=== PATIENT | male | born 1955 | race Caucasian/White ===

== ENCOUNTER 2020-10-26 16:38 | Inpatient (IN) | payer MEDICARE ==
[~2020-10-26] VITALS: Ht 182.9 cm; Wt 97.3 kg
[2020-10-26] MEDS ORDERED: CYCL10 PO (17:09)
[2020-10-26] MEDS ORDERED: ASPI81CH PO (17:09)
[2020-10-26] MEDS ORDERED: FURO40 PO (17:09)
[2020-10-26] MEDS ORDERED: METF500C PO (17:10)
[2020-10-26] MEDS ORDERED: HUMULIN 70100 UNIT/4 (17:10)
[2020-10-26] MEDS ORDERED: LOSA50 PO (17:10)
[2020-10-26] MEDS ORDERED: OMEP20ER PO (17:12)
[2020-10-26] MEDS ORDERED: ZOLP5 PO (17:12)
[2020-10-26] MEDS ORDERED: METO25ER PO (17:12)
[2020-10-26] MEDS ORDERED: TIZA4 PO (17:12)
[2020-10-26 17:50] LABS: BASOPHILS ABSOLUTE AUTO 0.06 K/mm3 (0.00-0.23); BASOPHILS PERCENT AUTO 1 % (0-2); EOSINOPHILS ABSOLUTE AUTO 0.41 K/mm3 (0.00-0.68); EOSINOPHILS PERCENT AUTO 6 % (0-6); Hematocrit 41.1 % (37.0-53.0); Hemoglobin 14.5 g/dL (13.5-17.5); IMMATURE GRAN ABSOLUTE AUTO 0.03 K/mm3 (0.00-0.10); IMMATURE GRAN PERCENT AUTO 0 % (0-1); LYMPHOCYTES ABSOLUTE AUTO 1.55 K/mm3 (0.84-5.20); LYMPHOCYTES PERCENT AUTO 21 % (21-46); MONOCYTES ABSOLUTE AUTO 0.69 K/mm3 (0.16-1.47); MONOCYTES PERCENT AUTO 9 % (4-13); Mean Corpuscular HGB 31.7 pg (26.0-34.0); Mean Corpuscular HGB Conc 35.3 g/dL (31.5-36.5); Mean Corpuscular Volume 90 fL (80-100); Mean Platelet Volume 10.1 fL (9.1-12.4); NEUTROPHILS ABSOLUTE AUTO 4.64 K/mm3 (1.96-9.15); NEUTROPHILS PERCENT AUTO 63 % (41-73); Platelet Count 226 K/mm3 (150-400); RDW Coefficient Variation 14.2 % (11.7-14.2); RDW Standard Deviation 46.6 fL (35.1-46.3); Red Blood Cell Count 4.58 M/mm3 (4.30-5.90); White Blood Cell Count 7.38 K/mm3 (4.00-11.30)
[2020-10-26 18:05] LABS: International Normalized Ratio 1.03; Prothrombin Time Results 11.1 Sec (9.7-11.5)
[2020-10-26 18:17] LABS: Alanine Aminotransfer (ALT/SGP 37 U/L (12-78); Albumin, Blood 3.3 g/dL (3.4-5.0); Albumin/Globulin Ratio 0.8 (0.8-1.8); Alk Phos 99 U/L (50-136); Anion Gap 6 mmol/L (6-16); Aspartate Aminotrans (AST/SGOT 64 U/L (12-37); Bilirubin, Total 1.1 mg/dL (0.1-1.0); Blood Urea Nitrogen 17 mg/dL (8-24); Bun/Creatinine Ratio 21.5 (12.0-20.0); CO2, Blood 26 mmol/L (21-32); Calcium, Blood 8.7 mg/dL (8.5-10.1); Chloride, Blood 109 mmol/L (98-108); Creatinine, Blood 0.79 mg/dL (0.60-1.20); Glomerular Filtration Rate >60 (60-); Glucose, Blood 141 mg/dL (70-99); Potassium, Blood 3.8 mmol/L (3.5-5.5); Sodium, Blood 141 mmol/L (136-145); Total Protein, Blood 7.3 g/dL (6.4-8.2)
[2020-10-26 18:57] LABS: Creatine Kinase MB 22.1 ng/mL (0.0-3.6); Creatine Kinase MB Index 4.9 (0.0-4.0); Magnesium, Blood 1.9 mg/dL (1.6-2.4)
--- NOTE | 2020-10-26 19:24 | NUR ---
PT ADMIT TO PCU AT 1822. ABLE TO TRANSFER FROM BED TO [facility], STEADY ON FEET. DENIES CHEST PAIN AT THIS TIME. TELE SHOWING SINUS WITH HR 80-90'S. VITAL SIGNS SHOWING ELEVATED BP, MEDICATED PER EMAR. ON ROOM AIR SATING ABOVE 94%. DENIES SOB. BILATERAL LOWER EXTREMITY EDEMA. RIGHT BIG TOE SCAB. BOWEL TONES PRESENT AND PERIPHERAL PULSES STRONG. LUNGS SOUNDING CLEAR AND DIM AT BASES. TROPONIN ELEVATED. DR. DIAS CONSULTED. PT OKAY TO EAT PER DR. DIAS. PT ORIENTED TO ROOM AND UNIT. CALL LIGHT IN REACH. BED IN LOW LOCKED POSITION. REPORTED OFF TO ONCOMING RN.
[2020-10-27 06:07] LABS: BASOPHILS ABSOLUTE AUTO 0.07 K/mm3 (0.00-0.23); BASOPHILS PERCENT AUTO 1 % (0-2); EOSINOPHILS ABSOLUTE AUTO 0.49 K/mm3 (0.00-0.68); EOSINOPHILS PERCENT AUTO 5 % (0-6); Hematocrit 41.8 % (37.0-53.0); Hemoglobin 14.9 g/dL (13.5-17.5); IMMATURE GRAN ABSOLUTE AUTO 0.04 K/mm3 (0.00-0.10); IMMATURE GRAN PERCENT AUTO 0 % (0-1); LYMPHOCYTES ABSOLUTE AUTO 1.83 K/mm3 (0.84-5.20); LYMPHOCYTES PERCENT AUTO 20 % (21-46); MONOCYTES ABSOLUTE AUTO 0.85 K/mm3 (0.16-1.47); MONOCYTES PERCENT AUTO 9 % (4-13); Mean Corpuscular HGB 31.8 pg (26.0-34.0); Mean Corpuscular HGB Conc 35.6 g/dL (31.5-36.5); Mean Corpuscular Volume 89 fL (80-100); Mean Platelet Volume 10.3 fL (9.1-12.4); NEUTROPHILS ABSOLUTE AUTO 5.91 K/mm3 (1.96-9.15); NEUTROPHILS PERCENT AUTO 64 % (41-73); Platelet Count 239 K/mm3 (150-400); RDW Coefficient Variation 14.1 % (11.7-14.2); RDW Standard Deviation 45.4 fL (35.1-46.3); Red Blood Cell Count 4.69 M/mm3 (4.30-5.90); White Blood Cell Count 9.19 K/mm3 (4.00-11.30)
--- NOTE | 2020-10-27 06:28 | NUR ---
SHIFT SUMMARY PT A&O X4. VSS. PT DENIES CP THIS SHIFT BUT DOES REPORT "UPPER BACK ACHE IN BETWEEN MY SHOULDER BLADES." PT MONITOR SHOWS SR, HR 70's. SPO2 > 92% ON RA. CIWA 4 OR LESS THIS SHIFT. NO EVENTS OVER NIGHT. HEPARIN GTT INFUSING PER ORDERS.
[2020-10-27 06:30] LABS: Alanine Aminotransfer (ALT/SGP 35 U/L (12-78); Albumin, Blood 3.2 g/dL (3.4-5.0); Albumin/Globulin Ratio 0.8 (0.8-1.8); Alk Phos 105 U/L (50-136); Anion Gap 7 mmol/L (6-16); Aspartate Aminotrans (AST/SGOT 57 U/L (12-37); Bilirubin, Total 1.4 mg/dL (0.1-1.0); Blood Urea Nitrogen 14 mg/dL (8-24); Bun/Creatinine Ratio 19.2 (12.0-20.0); CO2, Blood 23 mmol/L (21-32); Calcium, Blood 8.6 mg/dL (8.5-10.1); Chloride, Blood 107 mmol/L (98-108); Creatinine, Blood 0.73 mg/dL (0.60-1.20); Globulin, Blood 3.9 g/dL (2.2-4.0); Glomerular Filtration Rate >60 (60-); Glucose, Blood 159 mg/dL (70-99); Potassium, Blood 3.7 mmol/L (3.5-5.5); Sodium, Blood 137 mmol/L (136-145); Total Protein, Blood 7.1 g/dL (6.4-8.2)
[2020-10-27 06:31] LABS: SARS-Cov-2 (COVID-19) PCR, MMC NEGATIVE (NEGATIVE)
[2020-10-27 06:47] LABS: Creatine Kinase MB 11.3 ng/mL (0.0-3.6); Creatine Kinase MB Index 3.1 (0.0-4.0)
[2020-10-27 07:18] LABS: Troponin I 5.54 ng/mL (0.000-0.040)
[2020-10-27 13:08] LABS: Creatine Kinase MB Index 2.7 (0.0-4.0)
[2020-10-27 13:14] LABS: Troponin I 3.03 ng/mL (0.000-0.040)
--- NOTE | 2020-10-27 14:17 | NUR ---
Echocardiogram performed by Kimberley Oakes under my supervision.
--- NOTE | 2020-10-27 19:37 | NUR ---
PT REPORTED WANTING TO GO HOME AND THAT HE COULD HAVE HIS CARDIAC CONDITION MANAGED CLOSE TO HOME; PT GIVEN VERBAL EDUCATION ABOUT HIS HEPARIN DRIP AND CARDIAC CONDITIONS WITH RISK FACTORS AND IMPORTANCE OF HIS CONTINUED STAY IN THE HOSPITAL; PT VERBALLY ACKNOWLEDGED RISKS OF LEAVING AND SAID THAT HE WAS INTENT ON DOING SO; PROVIDER NOTIFIED VIA PHONE; PT BECAME VERBALLY COMBATIVE WITH [employer] WHEN SHE GAVE HIM EDUCATION AGAIN ABOUT THE IMPORTANCE OF ACCEPTING CARDIAC TREATMENT; PT RESTATED HIS INTENTION TO LEAVE; PT'S NOTIFIED BY PHONE BY [employer]; PT SIGNED AMA PAPERWORK AT 1335 WITNESSED BY THIS RN; PT REMOVED HIS OWN TELEMETRY UNIT; PT ALLOWED RN TO REMOVE HIS PIV'S AT 1430; PT VERBALIZED THAT HE WANTED TO WAIT FOR HIS IN THE WAITING ROOM; PT TRANSFERRED TO WAITING ROOM VIA WHEELCHAIR WITH NO OXYGEN, MONITORING, OR IV THERAPY, WITH PERSONAL EFFECTS; ACCOMPANIED BY THIS RN AND ASSISTED TO WAITING ROOM SEAT; PT DENIED ADDITIONAL CONCERNS AT THIS TIME
== END 2020-10-27 14:35 | disposition left against medical advice (07) | DRG 281 ==
LOC: ER 16:38 → PCU 17:37
PROVIDERS: Emergency Medicine; ADMIT Family Medicine
DX: I21.4 Non-ST elevation (NSTEMI) myocardial infarction (principal); I50.32 Chronic diastolic (congestive) heart failure; I35.0 Nonrheumatic aortic (valve) stenosis; I16.0 Hypertensive urgency; Z20.822 Contact with and (suspected) exposure to COVID-19; I25.10 Atherosclerotic heart disease of native coronary artery without angina pectoris; E88.81 Metabolic syndrome and other insulin resistance; I11.0 Hypertensive heart disease with heart failure; E11.9 Type 2 diabetes mellitus without complications; E66.01 Morbid (severe) obesity due to excess calories; E78.5 Hyperlipidemia, unspecified; M79.7 Fibromyalgia; Z68.36 Body mass index [BMI] 36.0-36.9, adult; F32.9 Major depressive disorder, single episode, unspecified; G47.33 Obstructive sleep apnea (adult) (pediatric); F10.10 Alcohol abuse, uncomplicated; M19.90 Unspecified osteoarthritis, unspecified site; Z96.659 Presence of unspecified artificial knee joint; Z90.49 Acquired absence of other specified parts of digestive tract; Z98.890 Other specified postprocedural states; Z95.1 Presence of aortocoronary bypass graft; Z79.01 Long term (current) use of anticoagulants; Z88.0 Allergy status to penicillin; I25.2 Old myocardial infarction; Z88.8 Allergy status to other drugs, medicaments and biological substances; Z88.5 Allergy status to narcotic agent; Z79.82 Long term (current) use of aspirin; Z79.4 Long term (current) use of insulin; Z79.899 Other long term (current) drug therapy
CPT/HCPCS: 36415; 71045; 80053; 82550; 82553; 82947; 83735; 84145; 84484; 85025; 85610; 85730; 93306; 96374; 96376; 99285; A9270; G0378; J0360; J1644; J1815; U0004